=== PATIENT | female | born 1955 | race Caucasian/White ===

== ENCOUNTER → 2016-10-19 | Outpatient (CLI) | payer OTHER ==
[~2016-10-19] MED LIST: HYDR-3702 PO; MULT-954 PO
--- NOTE | 2016-10-20 10:17 | Diagnostic Imaging Report ---
EXAM: Bilateral Digital Screening Mammography, with computer aided detection system (CAD). DATE: October 19, 2016. COMPARISON: October 18, 2015. October 14, 2014. September 25, 2013. INDICATION: Breast cancer screening. FINDINGS: There are scattered fibroglandular densities. There are no suspicious findings in either breast. IMPRESSION: 1. No mammographic evidence of malignancy. Recommend annual screening mammography and clinical breast exam. ACR BI-RADS Category 2: Benign findings. Result letter will be mailed to the patient. Note: At least 10% of breast cancer is not imaged by mammography. Dictated by: Dictated on workstation # [id number]
== END ==
LOC: RAD 07:16
PROVIDERS: ATTEND Family Medicine
DX: Z12.31 Encounter for screening mammogram for malignant neoplasm of breast (principal)